=== PATIENT | male | born 1975 | race Caucasian/White ===

== ENCOUNTER 2023-05-21 09:25 | Outpatient (CLI) | payer BC, SELFPAY | END 2023-05-21 09:26 | disposition home or self-care (01) | PROVIDERS: PCP Family Medicine; Visit Provider Family Medicine | DX: I10 Essential (primary) hypertension (principal); E78.00 Pure hypercholesterolemia, unspecified; R10.9 Unspecified abdominal pain | CPT/HCPCS: 80053; 80061 ==

== ENCOUNTER 2024-11-26 08:21 | Outpatient (CLI) | payer BC, SELFPAY | END 2024-11-26 08:22 | disposition home or self-care (01) | PROVIDERS: PCP Family Medicine; Visit Provider Family Medicine | DX: I10 Essential (primary) hypertension (principal); E78.00 Pure hypercholesterolemia, unspecified | CPT/HCPCS: 80053; 80061 ==